=== PATIENT | female | born 2000 | race African-American/Black ===

== ENCOUNTER 2022-11-09 17:20 | Emergency (ER) | payer MEDICAID ==
[~2022-11-09] VITALS: Ht 165 cm; Wt 113.0 kg
[2022-11-09 17:40] VITALS: BP 131/73
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
[2022-11-09 18:12] LABS: BASOPHILS % (AUTO) 0 % (0-10); EOSINOPHILS % (AUTO) 0 % (0-10); HEMATOCRIT 39 % (35-52); HEMOGLOBIN 13.2 g/dL (11.5-16.0); LYMPHOCYTES # (AUTO) 3.4 10^3/uL (1.0-4.0); LYMPHOCYTES % (AUTO) 49 % (12-44); MEAN CORPUSCULAR HEMOGLOBIN 30 pg (25-34); MEAN CORPUSCULAR HGB CONC 34 g/dL (32-36); MEAN CORPUSCULAR VOLUME 89 fL (80-99); MEAN PLATELET VOLUME 12.1 fL (9.0-12.2); MONOCYTES # (AUTO) 0.6 10^3/uL (0.0-1.0); MONOCYTES % (AUTO) 9 % (0-12); NEUTROPHILS # (AUTO) 2.9 10^3/uL (1.8-7.8); NEUTROPHILS % (AUTO) 42 % (42-75); PLATELET COUNT 177 10^3/uL (130-400)
[2022-11-09 18:30] LABS: ALANINE AMINOTRANSFERASE 13 U/L (0-55); ALBUMIN 3.7 GM/DL (3.2-4.5); ALKALINE PHOSPHATASE 77 U/L (40-136); BILIRUBIN,TOTAL 0.2 MG/DL (0.1-1.0); BUN/CREATININE RATIO 12; CALCIUM 9.1 MG/DL (8.5-10.1); CARBON DIOXIDE 21 MMOL/L (21-32); CHLORIDE 105 MMOL/L (98-107); CREATININE SERUM 0.93 MG/DL (0.60-1.30); GFR ESTIMATED 89; GLUCOSE 372 MG/DL (70-105); POTASSIUM 3.6 MMOL/L (3.6-5.0); SALICYLATE < 5.0 MG/DL (5.0-20.0); SODIUM 139 MMOL/L (135-145); TOTAL PROTEIN 6.9 GM/DL (6.4-8.2)
[2022-11-09 18:34] LABS: ACETAMINOPHEN < 10 UG/ML (10-30)
[2022-11-09 19:12] LABS: BILIRUBIN,URINE NEGATIVE (NEGATIVE); CLARITY,URINE CLEAR; COLOR,URINE YELLOW; GLUCOSE, URINE (UA) 3+ (NEGATIVE); KETONES,URINE TRACE (NEGATIVE); NITRITE,URINE NEGATIVE (NEGATIVE); PH,URINE 6.5 (5-9); PROTEIN,URINE 1+ (NEGATIVE)
[2022-11-09 19:13] LABS: BACTERIA,URINE NEGATIVE /HPF; LEUKOCYTE ESTERASE ,URINE NEGATIVE (NEGATIVE); SQUAMOUS EPITHELIAL CELL,UR 0-2 /HPF
[2022-11-09 19:21] LABS: AMPHETAMINE SCREEN, URINE NEGATIVE (NEGATIVE); BARBITURATE SCREEN URINE NEGATIVE (NEGATIVE); BENZODIAZEPINES SCREEN URINE POSITIVE (NEGATIVE); CANNABINOID SCREEN, URINE NEGATIVE (NEGATIVE); COCAINE SCREEN URINE NEGATIVE (NEGATIVE); METHADONE STAT NEGATIVE (NEGATIVE); OPIATE SCREEN URINE NEGATIVE (NEGATIVE); OXYCODONE STAT NEGATIVE (NEGATIVE); PROPOXYPHENE STAT NEGATIVE (NEGATIVE); TRICYCLIC ANTIDEPRESSANTS SCRE NEGATIVE (NEGATIVE)
== END 2022-11-10 00:21 | disposition home or self-care (01) ==
LOC: ER 17:24
DX: S51.812A Laceration without foreign body of left forearm, initial encounter (principal); R73.9 Hyperglycemia, unspecified; R82.4 Acetonuria; Z20.822 Contact with and (suspected) exposure to COVID-19; X78.8XXA Intentional self-harm by other sharp object, initial encounter
CPT/HCPCS: 36415; 80053; 80306; 80320; 80329; 81000; 85025; 87636; 93005

== ENCOUNTER → 2023-01-22 | Outpatient (CLI) | payer MEDICAID ==
--- NOTE | 2023-01-22 11:19 | Diagnostic Imaging Report ---
EXAMINATION: Right knee radiographs, 3 views. COMPARISON: None. HISTORY: 23-year-old female, right knee pain after fall. FINDINGS: There is no identified acute fracture. There is no knee joint effusion. The joint spaces are well preserved. IMPRESSION: Unremarkable radiographs of the right knee. Dictated by: Dictated on workstation # [id number]
== END ==
LOC: RAD 10:07
PROVIDERS: ATTEND Nurse Practitioner Family
DX: M25.561 Pain in right knee (principal); Z98.890 Other specified postprocedural states
CPT/HCPCS: 73562

== ENCOUNTER 2023-02-15 10:45 | Emergency (ER) | payer MEDICAID ==
[2023-02-15 10:46] VITALS: BP 120/80
[2023-02-15 11:16] LABS: HCG,QUALITATIVE URINE NEGATIVE (NEGATIVE)
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
[2023-02-15 11:20] LABS: CLARITY,URINE CLEAR; COLOR,URINE YELLOW; PH,URINE 6.5 (5-9)
[2023-02-15 11:21] LABS: BACTERIA,URINE TRACE /HPF; BILIRUBIN,URINE NEGATIVE (NEGATIVE); GLUCOSE, URINE (UA) 3+ (NEGATIVE); KETONES,URINE NEGATIVE (NEGATIVE); LEUKOCYTE ESTERASE ,URINE NEGATIVE (NEGATIVE); NITRITE,URINE NEGATIVE (NEGATIVE); PROTEIN,URINE NEGATIVE (NEGATIVE); WBC,URINE 0-2 /HPF
[2023-02-15 11:25] LABS: AMPHETAMINE SCREEN, URINE NEGATIVE (NEGATIVE); BARBITURATE SCREEN URINE NEGATIVE (NEGATIVE); CANNABINOID SCREEN, URINE NEGATIVE (NEGATIVE); COCAINE SCREEN URINE NEGATIVE (NEGATIVE); METHADONE STAT NEGATIVE (NEGATIVE); OPIATE SCREEN URINE NEGATIVE (NEGATIVE); OXYCODONE STAT NEGATIVE (NEGATIVE); TRICYCLIC ANTIDEPRESSANTS SCRE NEGATIVE (NEGATIVE)
[2023-02-15 12:00] LABS: BASOPHILS % (AUTO) 0 % (0-10); EOSINOPHILS % (AUTO) 0 % (0-10); HEMATOCRIT 43 % (35-52); HEMOGLOBIN 14.8 g/dL (11.5-16.0); LYMPHOCYTES # (AUTO) 3.3 10^3/uL (1.0-4.0); LYMPHOCYTES % (AUTO) 36 % (12-44); MEAN CORPUSCULAR HEMOGLOBIN 30 pg (25-34); MEAN CORPUSCULAR HGB CONC 34 g/dL (32-36); MEAN CORPUSCULAR VOLUME 88 fL (80-99); MEAN PLATELET VOLUME 11.4 fL (9.0-12.2); MONOCYTES # (AUTO) 0.8 10^3/uL (0.0-1.0); MONOCYTES % (AUTO) 8 % (0-12); NEUTROPHILS % (AUTO) 55 % (42-75); PLATELET COUNT 187 10^3/uL (130-400); WHITE BLOOD COUNT 9.1 10^3/uL (4.3-11.0)
[2023-02-15 12:10] LABS: CHLORIDE 104 MMOL/L (98-107); POTASSIUM 4.1 MMOL/L (3.6-5.0); SODIUM 139 MMOL/L (135-145)
[2023-02-15 12:13] LABS: GLUCOSE 76 MG/DL (70-105); TOTAL PROTEIN 7.5 GM/DL (6.4-8.2)
[2023-02-15 12:14] LABS: CARBON DIOXIDE 23 MMOL/L (21-32)
[2023-02-15 12:15] LABS: BILIRUBIN,TOTAL 0.2 MG/DL (0.1-1.0)
[2023-02-15 12:17] LABS: ALKALINE PHOSPHATASE 77 U/L (40-136); CREATININE SERUM 0.73 MG/DL (0.60-1.30); GFR ESTIMATED 118
[2023-02-15 12:18] LABS: ACETAMINOPHEN < 10 UG/ML (10-30); BUN/CREATININE RATIO 16
[2023-02-15 12:19] LABS: SALICYLATE < 5.0 MG/DL (5.0-20.0)
[2023-02-15 12:20] LABS: ALANINE AMINOTRANSFERASE 10 U/L (0-55)
[2023-02-15 12:40] LABS: TSH (THYROID ANALYZER) 1.73 UIU/ML (0.35-4.94)
== END 2023-02-15 13:44 | disposition home or self-care (01) ==
LOC: EDUNIT# 10:45 → ER 10:46
DX: R45.851 Suicidal ideations (principal); F17.210 Nicotine dependence, cigarettes, uncomplicated
CPT/HCPCS: 36415; 80053; 80306; 80320; 80329; 81000; 84443; 84703; 85025; 93005

== ENCOUNTER 2023-02-15 22:16 | Emergency (ER) | payer MEDICAID ==
[~2023-02-15] VITALS: Ht 170 cm; Wt 90.0 kg
[2023-02-15 22:28] VITALS: BP 143/97
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
--- NOTE | 2023-02-16 07:18 | Diagnostic Imaging Report ---
INDICATION: Cough and chest congestion; Suicidal ideation. Single AP view of the chest is obtained. COMPARISON: No previous study is available for comparison at this time. FINDINGS: Heart size and pulmonary vasculature are within normal limits, and the lungs are clear, bilaterally. IMPRESSION: Unremarkable chest. Dictated by: Dictated on workstation # [id number]
== END 2023-02-15 23:23 | disposition home or self-care (01) ==
LOC: EDUNIT# 22:16 → ER 22:18
DX: B34.9 Viral infection, unspecified (principal); R05.9 Cough, unspecified; R09.81 Nasal congestion; E66.9 Obesity, unspecified; Z68.31 Body mass index [BMI] 31.0-31.9, adult
CPT/HCPCS: 71045

== ENCOUNTER 2023-02-16 13:59 | Emergency (ER) | payer MEDICAID ==
[~2023-02-16] VITALS: Ht 170 cm; Wt 118.0 kg
--- NOTE | 2023-02-16 14:30 | ED Psychosocial ---
General Chief Complaint: Psych/Social Disorder Stated Complaint: PSYCHE EVAL Source: patient, old records, caregiver (JON WALLACE) History of Present Illness Date Seen by Provider: Feb 16, 2023 Time Seen by Provider: 14:15 Initial Comments 23 YO female with PMH of TBI, schizophrenia, and bipolar 2 disorder presents to ED with caregivers from [place], requesting medical clearance. Pt was seen in the ED yesterday for aggressive behavior, self-harm, and viral URI symptoms including congestion and rhinorrhea. Further chart review reveals pt denied SI, HI, and was dismissed home with staff with plan to see [facility]. Additionally, she had a negative chest xray while in ED yesterday and was recommended OTC supportive care measures. Caregivers report she just requires a "medical clearance" for placement. Pt currently denies suicidal ideation, homicidal ideation, self-harm, auditory hallucinations, fever, chills, shortness of breath or any other acute sx. Timing/Duration: yesterday Severity: mild (JON WALLACE) Allergies and Home Medications Allergies Coded Allergies: No Known Drug Allergies (Unverified , 02/15/23) Patient Home Medication List Home Medication List Reviewed: Yes (JON WALLACE) Home Medication List Reviewed: Yes (JORGE BURTON MD) Review of Systems Constitutional: No chills, No diaphoresis, No dizziness, No fever EENTM: nose congestion; No ear pain, No blurred vision, No double vision, No throat pain, No throat swelling Respiratory: No cough, No dyspnea on exertion, No short of breath, No wheezing Cardiovascular: No chest pain, No edema Gastrointestinal: No abdominal pain, No diarrhea, No jaundice, No loss of appetite, No nausea Genitourinary: No discharge, No dysuria, No hematuria Musculoskeletal: No back pain Skin: No change in color, No pruritus Psychiatric/Neurological: Denies Headache, Denies Numbness (JON WALLACE) All Other Systems Reviewed Negative Unless Noted: Yes (JON WALLACE) Past Izmdmmt-Dqbrfq-Bfdiki Hx Past Medical History Surgery/Hospitalization HX: TBI, BIPOLAR, SCHIZOPHRENIA (JON WALLACE) Physical Exam Vital Signs - First Documented 02/16/23 14:17 Temp 37.8 Pulse 123 Resp 18 B/P (MAP) 120/100 (107) Pulse Ox 96 O2 Delivery Room Air (JORGE BURTON MD) Capillary Refill : (JON WALLACE) Height, Weight, BMI Height: '" Weight: lbs. oz. kg; 31.00 BMI Method: General Appearance: WD/WN, no apparent distress, obese HEENT: PERRL/EOMI; No pale conjunctivae (R), No pale conjunctivae (L); other (nasal congestion, no turbinate swelling, no septal deviation) Neck: non-tender, full range of motion, supple, normal inspection Respiratory: chest non-tender, lungs clear, normal breath sounds, no respiratory distress, no accessory muscle use Cardiovascular: normal peripheral pulses, no edema, no gallop, no JVD, no mur mur, tachycardia (mild) Peripheral Pulses: 2+ Dorsalis Pedis (R), 2+ Left Dors-Pedis (L), 2+ Radial Pulses (R), 2+ Radial Pulses (L) Gastrointestinal: normal bowel sounds, non tender, soft, no organomegaly, no pu lsatile mass Extremities: non-tender, normal inspection, no pedal edema, no calf tenderness, normal capillary refill Neurologic/Psychiatric: no motor/sensory deficits, alert, normal mood/affect, oriented x 3 Appearance/Memory: appropriate appearance, no memory impairment Behavior/Eye Contact: cooperative, good eye contact; No threatening eye contact, No decreased rate of speech, No increased rate of speech, No belligeren t, No compulsive, No uncooperative Thoughts/Hallucinations: no apparent hallucination; No flight of ideas, No obsessive, No paranoid Skin: normal color, warm/dry Lymphatic: no adenopathy (JON WALLACE) Progress/Results/Core Measures Results/Orders Lab Results Laboratory Tests Test 02/16/23 15:09 Range/Units SARS-CoV-2 RNA (RT-PCR) Not Detected Not Detecte (JORGE BURTON MD) My Orders Orders - JORGE BURTON MD Olanzapine Orally Dissolve Tab (Olanzapi (02/16/23 18:45) Diphenhydramine Tablet (Diphenhydramine (02/16/23 19:30) Medically Cleared Psych Txfr (02/17/23 03:52) Cbc And Automated Diff (02/17/23 04:54) Comprehensive Metabolic Panel (02/17/23 04:54) Drug Screen Stat (Urine) (02/17/23 04:54) Salicylate (02/17/23 04:54) Acetaminophen (02/17/23 04:54) Alcohol (02/17/23 04:54) Hcg,Qualitative Serum (02/17/23 04:54) (JORGE BURTON MD) Medications Given in ED Current Medications Medications Dose Ordered Sig/[place] Route Start Time Stop Time Status Last Admin Dose Admin Diphenhydramine HCl 50 mg ONCE ONCE PO 02/16/23 19:30 02/16/23 19:31 DC 02/16/23 19:33 50 MG Olanzapine 5 mg ONCE ONCE PO 02/16/23 18:45 02/16/23 18:46 DC 02/16/23 18:53 5 MG (JORGE BURTON MD) Vital Signs/I&O (JORGE BURTON MD) Progress Progress Note : Progress Note 23 YO female presented for medical clearance for psychiatric facility placement. She was seen in the ED yesterday for aggressive behavior, however she did not have any SI/HI and staff felt comfortable with having her f/u with [facility] today. She remains to have no SI/HI, self harm, hallucinations or any other complaints. She is afebrile with vital signs requiring no immediate intervention. Exam is remarkable for a obese female in NAD. She was mildly tachycardic, with clear lungs bilaterally. She is noted to have nasal congestion, but no posterior oropharynx erythema, limited LAD, and remaining HEENT exam was unremarkable. She was medically cleared yesterday in the ED and does not require further testing. She is awaiting placement. Pt and caregiver are agreeable with plan. (JON WALLACE) Progress Note #1: Time: 18:31 Progress Note Notified by Makayla - [employer], patient is pacing the room and complaining of being anxious. She is "tired of being here". Need to clarify with [place] workers or guardian is she is "voluntary by guardian" for psych placement. Will give her something to help her calm down as placement may take a while. In handoff from Dr Moore, medical clearance is complete and [facility] is allegedly working on placement. Progress Note #2: Time: 04:55 Progress Note SHADY Walker contacted [facility] to find out status of finding placement for patient. [facility] informed Denise that facilities ([place]) request new labs or current labs within 24 hours. Patient has been resting comfortably for the last 11 hours, no behaviors/complaints. No SI/HI. [facility] asked if the patient was "still suicidal". The patient was actually sent to the ER for placement due to behaviors per [facility]. Had screening earlier at [facility]. Is voluntary by Guardian (with whom I spoke at 1830 last evening) for her aggressive behaviors. NOT SI/HI. Patient has not had any complaints of SI/HI since she was seen 2 days ago here in the ED. Ordering repeat labs - as they indicated the patient had left the facility - even though it was to her [facility] and [facility]. (JORGE BURTON MD) Progress Note #1: Time: 12:48 Progress Note I assumed care of this patient from Dr. Burton at shift change. Screening for possible behavioral health placement was pending at that time. [facility] has performed the screening and developed a safety plan. Patient had a fairly unremarkable ER visit this morning. She did become mildly agitated at 1 point and was trying to leave. She excepted treatment with Zyprexa 2.5 mg which calmed her agitation. Progress Note #2: Progress Note Jakob was screened and discharged with a safety plan. The behavioral health team may still pursue placement but she can go home on a safety plan while she awaits placement. (JANEL ARZOLA MD) Departure Impression Primary Impression: Behavior concern in adult Disposition: 01 HOME, SELF-CARE Condition: Stable Transfer Medically Cleared for Xfer: Yes Transfer Reason: Exceeds level of care (JORGE BURTON MD) Departure-Patient Inst. Decision time for Depature: 12:50 (JANEL ARZOLA MD) Referrals: DEBI GARY MD (PCP/Family) Primary Care Physician Patient Instructions: NO INSTRUCTIONS GIVEN Add. Discharge Instructions: Continue medications as previously directed until otherwise instructed by your behavioral health prescriber. Follow the safety plan as directed by [facility]. Return to the emergency room if there are any additional medical issues that require urgent attention. Otherwise, follow the safety plan. All discharge instructions reviewed with patient and/or family. Voiced understanding. JON WALLACE Feb 16, 2023 14:30 JORGE BURTON MD Feb 16, 2023 18:36 JANEL ARZOLA MD Feb 17, 2023 12:56
[2023-02-16] MEDS ORDERED: OLANZapine 5 MG ODT TABLET PO ONE (18:45)
[2023-02-16] MEDS ORDERED: diphenhydrAMINE 25 MG TABLET PO ONE (19:30)
[2023-02-17 05:10] LABS: BASOPHILS % (AUTO) 0 % (0-10); EOSINOPHILS # (AUTO) 0.2 10^3/uL (0.0-0.3); EOSINOPHILS % (AUTO) 3 % (0-10); HEMATOCRIT 44 % (35-52); HEMOGLOBIN 14.3 g/dL (11.5-16.0); LYMPHOCYTES # (AUTO) 3.3 10^3/uL (1.0-4.0); LYMPHOCYTES % (AUTO) 44 % (12-44); MEAN CORPUSCULAR HEMOGLOBIN 30 pg (25-34); MEAN CORPUSCULAR HGB CONC 33 g/dL (32-36); MEAN CORPUSCULAR VOLUME 90 fL (80-99); MEAN PLATELET VOLUME 11.3 fL (9.0-12.2); MONOCYTES # (AUTO) 1.2 10^3/uL (0.0-1.0); MONOCYTES % (AUTO) 15 % (0-12); NEUTROPHILS # (AUTO) 2.8 10^3/uL (1.8-7.8); NEUTROPHILS % (AUTO) 37 % (42-75); PLATELET COUNT 163 10^3/uL (130-400); WHITE BLOOD COUNT 7.6 10^3/uL (4.3-11.0)
[2023-02-17 05:27] LABS: AMPHETAMINE SCREEN, URINE NEGATIVE (NEGATIVE); BARBITURATE SCREEN URINE NEGATIVE (NEGATIVE); CANNABINOID SCREEN, URINE NEGATIVE (NEGATIVE); COCAINE SCREEN URINE NEGATIVE (NEGATIVE); METHADONE STAT NEGATIVE (NEGATIVE); OPIATE SCREEN URINE NEGATIVE (NEGATIVE); OXYCODONE STAT NEGATIVE (NEGATIVE); TRICYCLIC ANTIDEPRESSANTS SCRE NEGATIVE (NEGATIVE)
[2023-02-17 05:37] LABS: ACETAMINOPHEN < 10 UG/ML (10-30); ALANINE AMINOTRANSFERASE 9 U/L (0-55); ALBUMIN 3.6 GM/DL (3.2-4.5); ALKALINE PHOSPHATASE 74 U/L (40-136); BILIRUBIN,TOTAL 0.3 MG/DL (0.1-1.0); BUN/CREATININE RATIO 13; CALCIUM 9.4 MG/DL (8.5-10.1); CARBON DIOXIDE 24 MMOL/L (21-32); CHLORIDE 105 MMOL/L (98-107); CREATININE SERUM 0.83 MG/DL (0.60-1.30); GFR ESTIMATED 102; GLUCOSE 115 MG/DL (70-105); POTASSIUM 4.2 MMOL/L (3.6-5.0); SALICYLATE < 5.0 MG/DL (5.0-20.0); SODIUM 138 MMOL/L (135-145); TOTAL PROTEIN 6.7 GM/DL (6.4-8.2)
[2023-02-17] MEDS ORDERED: OLANZapine 5 MG ODT TABLET PO ONE (10:15)
[2023-02-17 14:30] VITALS: BP 120/82
== END 2023-02-17 14:30 | disposition short-term general hospital (02) ==
LOC: EDUNIT# 13:59 → ER 14:00
DX: R45.6 Violent behavior (principal); E66.9 Obesity, unspecified; R00.0 Tachycardia, unspecified; Z68.31 Body mass index [BMI] 31.0-31.9, adult
CPT/HCPCS: 36415; 80053; 80306; 80320; 80329; 84703; 85025; 87636